=== PATIENT | male | born 1980 | race African-American/Black ===

== ENCOUNTER 2016-07-24 04:08 | Emergency (ER) | payer BC ==
[~2016-07-24] VITALS: Ht 188 cm; Wt 111.1 kg
[2016-07-24 04:14] VITALS: BP 124/68
[2016-07-24] MEDS ORDERED: BELLADONNA /PHENOBARB 5 ML UDC 5 ML UDC ONE (04:59)
[2016-07-24] MEDS ORDERED: DIPHENOXYLATE HCL/ATROP SULF 1 UDTAB TABLET ONE (04:59)
[2016-07-24] MEDS ORDERED: IV SET PRIMARY 1 EA INFUS.SET MC ONE (05:00)
[2016-07-24] MEDS ORDERED: ONDANSETRON HCL/PF 4 MG/2 ML VIAL IVP ONE (05:00)
[2016-07-24] MEDS ORDERED: IV NS 0.9% 1,000 ML BAG IV ONE (05:00)
[2016-07-24] MEDS ORDERED: KETOROLAC TROMETHAMINE INJ 30 MG/ML VIAL IV ONE (05:00)
[2016-07-24] MEDS ORDERED: KETOROLAC TROMETHAMINE INJ 30 MG/ML VIAL ONE (05:00)
[2016-07-24] MEDS ORDERED: DIPHENOXYLATE HCL/ATROP SULF 1 UDTAB TABLET PO ONE (05:00)
[2016-07-24] MEDS ORDERED: IV NS 0.9% 1,000 ML ONE (05:00)
[2016-07-24] MEDS ORDERED: BELLADONNA /PHENOBARB 5 ML UDC 5 ML UDC PO ONE (05:00)
[2016-07-24] MEDS ORDERED: ONDANSETRON HCL/PF 4 MG/2 ML VIAL ONE (05:00)
[2016-07-24 05:32] LABS: BASOPHILS % (AUTO) 0.1 % (0.0-2.0); DIFF TOTAL % 100 %; EOSINOPHILS % (AUTO) 0.7 % (0.0-6.0); HEMATOCRIT 42 % (39-51); HEMOGLOBIN 14.1 g/dL (13.5-17.5); LYMPHOCYTES # (AUTO) 0.7 /CMM (0.8-4.8); LYMPHOCYTES % (AUTO) 11.2 % (20.0-44.0); MEAN CORPUSCULAR HEMOGLOBIN 33 PG (26.0-33.0); MEAN CORPUSCULAR HGB CONC 34 g/dl (31.0-36.0); MEAN CORPUSCULAR VOLUME 97 fL (80-96); MONOCYTES # (AUTO) 0.6 /CMM (0.1-1.30); MONOCYTES % (AUTO) 9.9 % (2.0-12.0); NEUTROPHILS # (AUTO) 4.8 /CMM (1.8-8.9); NEUTROPHILS % (AUTO) 78.1 % (43.0-81.0); PLATELET COUNT (AUTO) 265 /CMM (150-450); RED BLOOD CELL COUNT(AUTO) 4.29 MIL/uL (4.5-6.0); WHITE BLOOD COUNT (AUTO) 6.2 K/uL (4.3-11.0)
[2016-07-24 05:38] LABS: CALCIUM, SERUM 8.2 mg/dL (8.5-10.1); CREATININE 1.1 mg/dL (0.6-1.3); POTASSIUM 3.9 mmol/L (3.5-5.1)
== END 2016-07-24 06:44 | disposition home or self-care (01) ==
LOC: ER 04:08
DX: E86.0 Dehydration (principal); R19.7 Diarrhea, unspecified
CPT/HCPCS: 36415; 80048-TC; 85025-TC; A4606; J1885; J2405; J7030; Z7610

== ENCOUNTER 2018-11-15 04:42 | Emergency (ER) | payer BC ==
[~2018-11-15] VITALS: Ht 188 cm; Wt 115.7 kg
--- NOTE | 2018-11-15 05:05 | NUR ---
PT BIBSSELF C/O "WOKEN BY SHARP PAIN L SIDE CHEST. FEEL LIKE HEART IS RACING" -PAIN. NONRADIATING. "WEIRD FEELING IN L ARM" -SOB -DIZZY AOX4. NAD NOTED. RESP EVEN AND UNLABORED. PT IN A GOWN AND ON MONITOR IN BED 11. WILL CONTINUE TO MONITOR.
--- NOTE | 2018-11-15 05:20 | NUR ---
BLOOD DRAWN AND GIVEN TO LAB
--- NOTE | 2018-11-15 05:23 | NUR ---
TECH AT BEDSIDE FOR EKG
[2018-11-15 05:27] LABS: BASOPHILS # (AUTO) 0.1 /CMM (0.0-0.2); BASOPHILS % (AUTO) 0.7 % (0.0-2.0); EOSINOPHILS % (AUTO) 0.6 % (0.0-6.0); HEMATOCRIT 45 % (39-51); HEMOGLOBIN 15.3 g/dL (13.5-17.5); LYMPHOCYTES # (AUTO) 2.4 /CMM (0.8-4.8); MEAN CORPUSCULAR HGB CONC 34 g/dl (31.0-36.0); MEAN CORPUSCULAR VOLUME 100 fL (80-96); MONOCYTES # (AUTO) 0.6 /CMM (0.1-1.30); MONOCYTES % (AUTO) 7.8 % (2.0-12.0); NEUTROPHILS # (AUTO) 4.7 /CMM (1.8-8.9); NEUTROPHILS % (AUTO) 59.9 % (43.0-81.0); PLATELET COUNT (AUTO) 338 /CMM (150-450); RED BLOOD CELL COUNT(AUTO) 4.52 MIL/uL (4.5-6.0); WHITE BLOOD COUNT (AUTO) 7.8 K/uL (4.3-11.0)
[2018-11-15 05:41] LABS: CALCIUM, SERUM 9.3 mg/dL (8.5-10.1); CARBON DIOXIDE 29 mmol/L (21-32); CHLORIDE 103 mmol/L (98-107); CREATININE 1.1 mg/dL (0.6-1.3); GLUCOSE 96 mg/dL (74-106); POTASSIUM 3.4 mmol/L (3.5-5.1); SODIUM SERUM 142 mmol/L (136-145); UREA NITROGEN, BLOOD 16 mg/dL (7-18)
--- NOTE | 2018-11-15 06:29 | NUR ---
Patient is resting comfortably in bed. VSS. WILL CONTINUE TO MONITOR.
--- NOTE | 2018-11-15 07:24 | NUR ---
REPORT GIVEN TO ROSIE NI FOR MARY GRACE
--- NOTE | 2018-11-15 07:27 | NUR ---
RECEIVED REPORT FROM ROSIE ALMAGUER FOR MARY GRACE, PT IS AAOX4, NOT IN RESPIRATORY DISTRESS, V/S STABLE, AWAITING SECOND TRPONIN TEST AT 0820H, WILL CONTINUE TO MONITOR.
--- NOTE | 2018-11-15 08:03 | NUR ---
ER PHLEB AT BEDSIDE FOR BLOOD DRAW.
[2018-11-15 08:57] VITALS: BP 106/60
--- NOTE | 2018-11-15 09:08 | NUR ---
IV removed. Catheter intact and site benign. Pressure and 4x4 applied to site. No bleeding noted. Patient discharged to home in stable condition. Written and verbal after care instructions given. Patient verbalizes understanding of instruction.
== END 2018-11-15 09:09 | disposition home or self-care (01) ==
LOC: ER 04:44
DX: R07.89 Other chest pain (principal); F10.10 Alcohol abuse, uncomplicated; Y90.9 Presence of alcohol in blood, level not specified
CPT/HCPCS: 36415; 71045-TC; 80048-TC; 84484-TC; 85025-TC